=== PATIENT | male | born 1960 | race Caucasian/White ===

== ENCOUNTER 2016-10-02 19:53 | Inpatient (IN) ==
[2016-10-02] MEDS ORDERED: ASPIRIN 325 MG TABLET PO STA (20:37)
[2016-10-02] MEDS ORDERED: LORazepam 1 MG TABLET PO STA (20:37)
[2016-10-02] MEDS ORDERED: ALUM/MAG/SIMETH/LIDO VISC 1:1 30 ML BOTTLE PO STA (20:37)
[2016-10-02] MEDS ORDERED: PANTOPRAZOLE 40 MG VIAL IV STA (20:37)
[2016-10-02] MEDS ORDERED: ONDANSETRON 4 MG/2 ML VIAL IV STA (20:37)
[2016-10-02] MEDS ORDERED: METOCLOPRAMIDE 10 MG/2 ML VIAL IV STA (20:37)
--- NOTE | 2016-10-02 20:42 | Emergency Department Note ---
Arrival - Arrival Chief Complaint: Chest Pain Stated Complaint: CHEST PAIN, CHF PATIENT ED Nursing Triage Note: pt complains of squeezing type epigastric pain in center of chest, states he is having tingling in his left arm, pt denies n/v, pt says he is always sob. pt states he is diaphoretic. pt states he has had 2 etoh drinks. Mode of Arrival: Wheelchair Limitations: No Limitations Source: Patient Time Seen by Provider: 10/02/16 20:37 - History of Present Illness HPI Narrative: This 56-year-old white male with a history of congestive heart failure and coronary artery disease presents with 2 days of mid epigastric squeezing pain which is in the central chest. He states that he has considered this to be reflux as a possibility however this is how his cardiac related chest pains present and he does report tingling in the left arm with this. He does describe heartburn and water brash symptoms as well as diaphoresis; however, he does deny nausea and vomiting and has been drinking. He also states that he does have problems with panic anxiety situation and he does appear stressed at the moment. He also states that he is chronically short of breath due to congestive failure but his degree of dyspnea has not increased in association with these symptoms the last 2 days. Currently at rest in bed he appears anxious but in no acute medical distress. Onset (ago): day(s) (patient presents 3 days post-onset of symptoms) Consistency: constant Severity: moderate Severity scale (1-10): 5 Quality: burning Allergies/Adverse Reactions: Allergies Allergy/AdvReac Type Severity Reaction Status Date / Time No Known Allergies Allergy Verified 10/02/16 20:04 Review of System - Review of System 12 point system: reviewed and no additional remarkable complaints except as stated - Review of System Cardiovascular: Present: as per HPI Gastrointestinal: Present: as per HPI Medical,Surgical,& Family Hx - Medical History Cardio: History of: CHF, Cardiovascular Problems (50% occlusion) Endocrine: History of: Diabetes Mellitus (NIDDM) - Social History Smoking Status: Current every day smoker Frequency of Alcohol Use: Occasionally Type of Drug Use: Methamphetamine Exam Physical Examination: GENERAL: Obese white male diaphoretic with flushed face in no acute distress. HEENT: Normocephalic. No trauma. Moist mucous membranes. EOMI. PERRLA. ENT clear NECK: Supple. No adenopathy. No JVD CARDIAC: Regular. No murmurs. Heart rate 91 CHEST: Occasional expiratory rhonchi. No respiratory distress. O2 sat 95% ABDOMEN: Soft. Midepigastric tenderness. Active bowel sounds. EXTREMITIES: No trauma. Normal ROM. No pedal edema. SKIN: No rash. Red faced with diaphoresis. NEURO: Alert. Neuro intact No focal deficits. Vital Signs: Vital Signs Temperature 97.0 F L 10/02/16 19:58 Pulse Rate 91 H 10/02/16 19:58 Respiratory Rate 18 10/02/16 19:58 Blood Pressure 162/97 10/02/16 19:58 O2 Sat by Pulse Oximetry 95 10/02/16 19:58 Course - Reevaluation(s) Reevaluation #1: Discussed with patient the need for hospitalization for pancreatitis. - Consultations Consultation #1: Discussed with Dr. Guerra, hospitalist, who will admit for further evaluation and treatment. Results - Labs CBC & BMP: 10/02/16 21:12 10/02/16 21:12 Labs: I have reviewed the laboratory and noted the elevated lipase. Likewise noted the benzos, opiates, and pot in the urine as well as a low-level blood alcohol. - Impressions EKG sinus rhythm at 90 with normal ME interval and QRS duration. Evidence of old inferior AR. Left atrial enlargement. No acute injury pattern noted. - Diagnostic Findings Procedure: Chest x-ray: image reviewed by me, report reviewed by me (chronic basilar scarring otherwise unremarkable) Disposition Clinical Impression: pancreatitis, multiple substance use, cardiomyopathy, diabetes Case discussed with: patient Disposition: Still a Patient Condition: Guarded Time of Disposition: 23:25
[2016-10-02] MEDS ORDERED: PANTOPRAZOLE 40 MG VIAL IV ONE (20:48)
[2016-10-02] MEDS ORDERED: METOCLOPRAMIDE 10 MG/2 ML VIAL ONE (20:48)
[2016-10-02] MEDS ORDERED: LORazepam 1 MG TABLET ONE (20:48)
[2016-10-02] MEDS ORDERED: ASPIRIN 325 MG TABLET ONE (20:48)
[2016-10-02] MEDS ORDERED: ONDANSETRON 4 MG/2 ML VIAL ONE (20:48)
[2016-10-02] MEDS ORDERED: ALUM/MAG/SIMETH/LIDO VISC 1:1 30 ML BOTTLE PO ONE (20:49)
--- NOTE | 2016-10-02 21:04 | XRay Report ---
Portable chest Date:[10/02/2016] Clinical history: Chest pain Comparison: 06/19/2013 Technique: Portable AP sitting chest Findings: The heart appears slightly smaller in size. Chronic scarring in the lungs with stable mediastinum. No acute osseous findings. Impression: No acute cardiopulmonary pathology identified. PROCEDURE INTERPRETED AT [facility] DEPARTMENT OF RADIOLOGY Final Report Signed by: Dr. Corrie Antonio
[2016-10-02 21:15] LABS: Basophils # 0.1 10*3/uL (0.0-0.2); Basophils % 0.9 % (0.0-0.8); Eosinophils # 0.6 10*3/uL (0.0-0.87); Eosinophils % 5.2 % (0.00-10.9); Hematocrit 51.5 VOL% (42.0-52.0); Hemoglobin 17.1 GM/DL (14.0-18.0); Immature Granulocytes % 0.5 %; Immature Granulocytes Absolute 0.05 #; Lymphocytes # 2.6 10*3/uL (1.4-4.0); Lymphocytes % 23.2 % (21.2-54.2); Mean Corpuscular HGB Conc 33.2 GM/DL (32-36); Mean Corpuscular Hemoglobin 28 PG (27-34); Mean Corpuscular Volume 84.3 FL (87-102); Mean Platelet Volume 10.2 FL (9.6-12.0); Monocytes # 0.8 10*3/uL (0.11-0.8); Monocytes % 7.3 % (1.7-12.7); Neutrophils # 6.9 10*3/uL (1.4-7.4); Neutrophils % 62.9 % (38.7-73.9); Platelet Count 176 T/CUMM (130-400); Red Blood Count 6.11 MC/CUMM (3.8-5.5); Red Cell Distribution Width 14.4 % (9.3-17.3)
[2016-10-02 21:28] LABS: PT Patient Result 11.1 SECS; Partial Thromboplastin Time 26.8 SECS (0-40)
[2016-10-02 21:42] LABS: Alanine Aminotransferase 157 U/L (16-61); Albumin 3.6 G/DL (3.4-5.0); Alkaline Phosphatase 103 U/L (45-117); Aspartate Amino Transferase 78 U/L (0-37); Blood Urea Nitrogen 18 MG/DL (7-18); Calcium 9.3 MG/DL (8.5-10.1); Glucose 327 MG/DL (74-106); Osmolality,Calculated 287.8 MOS/KG (273-304); Sodium 137 MMOL/L (136-145); Total Protein 7.7 G/DL (6.4-8.3)
[2016-10-02 22:01] LABS: Apearance,Urine CLEAR (Clear); Bilirubin,Urine Negative (Negative); Blood, Urine Negative (Negative); Glucose,Urine (UA) >=500 mg/dL (Negative); Hyaline Casts,Urine 6 /LPF (0-3); Ketones,Urine Negative (Negative); Mucus,Urine Occasional /LPF (Occasional); Nitrite,Urine Negative (Negative); Protein,Urine 100 MG/DL; RBC,Urine <1 /HPF (0-4); Squamous Epithelial Cell,Urine Occasional /HPF (0-10); Urine Color Yellow (Yellow); Urine Specific Gravity 1.014 (1.001-1.035); Urine Urobilinogen < 2.0 EU/DL (0.2-1.0); WBC,Urine <1 /HPF (0-6)
[2016-10-02 22:04] LABS: Barbiturates Screen,Urine Negative (Negative); Benzodiazepines Screen,Urine Positive (Negative); Cannabinoid Screen,Urine Positive (Negative); Opiate Screen,Urine Positive (Negative); Phencyclidine Screen,Urine Negative (Negative)
[2016-10-03] MEDS ORDERED: MORPHINE 2 MG/1 ML SYRINGE IV PRN (00:26)
[2016-10-03] MEDS ORDERED: ONDANSETRON 4 MG/2 ML VIAL IV PRN (00:26)
[2016-10-03] MEDS ORDERED: traZODone 50 MG TABLET PO PRN (00:26)
[2016-10-03] MEDS ORDERED: BISACODYL 5 MG TABLET PO PRN (00:26)
[2016-10-03] MEDS ORDERED: ACETAMINOPHEN 325 MG TABLET PO PRN (00:26)
[2016-10-03] MEDS ORDERED: NICOTINE 21 MG/24 HR PATCH TRANSDERM PRN (00:26)
[2016-10-03] MEDS ORDERED: chlordiazePOXIDE 25 MG CAPSULE PO PRN (00:29)
[2016-10-03] MEDS ORDERED: SODIUM CHLORIDE 0.9% 1,000 ML IV SCH (00:30)
--- NOTE | 2016-10-03 00:34 | Hospitalist History & Physical ---
Assessment and Plan - Time spent with patient Time spent discussing smoking cessation with patient: 3 to 10 minutes (1) Acute pancreatitis Status: Acute Current Visit: Yes (2) Atypical chest pain Status: Acute Current Visit: Yes (3) Alcohol dependence Status: Acute Current Visit: Yes (4) Uncontrolled hypertension Status: Acute Current Visit: Yes (5) Type 2 diabetes mellitus Status: Acute Assessment and plan: Plan: 10/02: CT abdomen and pelvis pending. Continue IV fluids, pain control, supportive care. Clear liquid diet as tolerated. When necessary benzodiazepines for alcohol withdrawal. Recheck LFTs in the morning. We will also repeat cardiac enzymes given his history and abnormal (albeit minimally) troponin. Current Visit: Yes History of Present Illness Chief complaint: abdominal pain History of present illness: Mr. Bartlett is a 56 year old male with hypertension, type 2 diabetes, history of alcoholic cardiomyopathy, heavy drinking history several years ago, who is here with several hours of epigastric pain and a sensation of "squeezing in the chest." He was largely relieved by GI cocktail in the emergency room. Initially he rated the pain 7 out of 10 at worst. It radiated down to the mid abdomen. He denied nausea or vomiting, no diarrhea. He did have some diaphoresis, no shortness of breath. Lipase was found to be elevated as were LFTs. He does admit to drinking 2 large beers at least twice a week. I suspect he is minimizing his alcohol intake. CT scan is pending, however we are planning to admit him for treatment of acute pancreatitis. Allergies Allergy/AdvReac Type Severity Reaction Status Date / Time No Known Allergies Allergy Verified 10/02/16 20:04 Medical,Surgical,& Family Hx - Medical History Cardio: History of: CHF (chronic systolic CHF, dilated cardiomyopathy likely due to alcohol), Hypertension Psychological: History of: Depression Endocrine: History of: Diabetes Mellitus (NIDDM) - Surgical History Surgical History: noncontributory - Family History Family History: noncontributory - Social History Smoking Status: Current every day smoker Have you smoked in the last 12 months: Yes Time spent discussing smoking cessation with patient: 3 to 10 minutes Frequency of Alcohol Use: Frequently Type of Drug Use: Marijuana, Methamphetamine Marital Status: Unknown Functional capacity: independent ambulation Review of systems: A 12 point review of systems is negative except as specified in the HPI Exam - Constitutional Vitals: Period Temp Pulse Resp BP Sys/Felton Pulse Ox Last 24 Hr 97.0 F 91 18 162/97 95 Exam: EXAM: CONSTITUTIONAL: Disheveled, non toxic, NAD HEENT: NC, AT, OP benign, JEANNA, EOMI CV: RRR no m/g/r RESP: clear B/L, no w/r/r GI: abd soft, mild epigastric tenderness to palpation no rebound, ND, +bowel sounds, reducible umbilical hernia INTEGUMENTARY: no lesions or rash EXTREMITIES: no c/c/e NEURO: no focal deficits PSYCH: Awake and alert, hyperverbal Results - Labs CBC & BMP: 10/02/16 21:12 10/02/16 21:12 Lab Results: I have reviewed the past 24 hour labs - EKG EKG shows: sinus rhythm - Diagnostic Findings Procedure: Chest x-ray: image reviewed by me, report reviewed by me, CT Abdomen and Pelvis: pending Quality Measures - Stroke Onset of Symptoms Date: 09/29/16
[2016-10-03] MEDS ORDERED: GLUCAGON 1 MG VIAL IM PRN (01:42)
[2016-10-03] MEDS ORDERED: DEXTROSE 50% 25 GM/50 ML VIAL IV PRN (01:42)
[2016-10-03 03:54] LABS: Basophils # 0.1 10*3/uL (0.0-0.2); Basophils % 0.6 % (0.0-0.8); Eosinophils # 0.5 10*3/uL (0.0-0.87); Eosinophils % 6.4 % (0.00-10.9); Hematocrit 48.1 VOL% (42.0-52.0); Hemoglobin 16.3 GM/DL (14.0-18.0); Immature Granulocytes % 0.4 %; Immature Granulocytes Absolute 0.03 #; Lymphocytes # 2.4 10*3/uL (1.4-4.0); Lymphocytes % 29.3 % (21.2-54.2); Mean Corpuscular HGB Conc 33.9 GM/DL (32-36); Mean Corpuscular Hemoglobin 28 PG (27-34); Mean Corpuscular Volume 83.4 FL (87-102); Mean Platelet Volume 10.8 FL (9.6-12.0); Monocytes # 0.6 10*3/uL (0.11-0.8); Monocytes % 7.8 % (1.7-12.7); Neutrophils # 4.5 10*3/uL (1.4-7.4); Neutrophils % 55.5 % (38.7-73.9); Platelet Count 157 T/CUMM (130-400); Red Blood Count 5.77 MC/CUMM (3.8-5.5); Red Cell Distribution Width 14.5 % (9.3-17.3)
[2016-10-03 04:24] LABS: Albumin 3.5 G/DL (3.4-5.0); Bilirubin,Total 1.6 MG/DL (0.2-1.0); Calcium 8.5 MG/DL (8.5-10.1); Potassium 4.1 MMOL/L (3.5-5.1); Risk Ratio 5.33; Total Protein 6.6 G/DL (6.4-8.3); VLDL CHOLESTEROL 109.8 MG/DL
[2016-10-03 05:25] LABS: Troponin I Only 0.052 NG/ML (0.00-0.045)
--- NOTE | 2016-10-03 08:08 | CT Report ---
Exam: CT chest abdomen pelvis w con Date: 10/02/2016 11:21 PM Comparison: None Indication: Chest pain, generalized abdominal pain Technique:Sequential axial scans of the chest, abdomen, and pelvis were obtained following the injection of 100 cc Omnipaque 350 and the ingestion of oral contrast. Coronal and sagittal 2-D reconstructions were obtained. This exam was initially interpreted by [facility]. Total DLP: 2542.90 Findings: The heart is normal in size with cardiac fat pads and coronary artery calcifications. No evidence of aortic dissection, pulmonary emboli, or chest lymphadenopathy. Very minimal atelectasis/scarring. Fatty infiltration of the liver with elongation of the right lobe. No masses, dilated ducts, or calcified gallstones. The spleen is minimally enlarged. 35 x 30 x 38 mm cystic-appearing masslike finding in the tail of the pancreas. Minimal nodularity of the right adrenal gland with unremarkable left adrenal gland. Probable small very small renal cysts with no renal or ureteral calculi. Calcification in the wall of the nondilated abdominal aorta with no adjacent adenopathy. Small hiatal hernia with metallic densities in the stomach and nondilated small bowel. 65 mm fat-containing umbilical hernia. Minimal oral contrast reaches the cecum with metallic density in this location. No evidence of diverticulitis, appendicitis, free air, or free fluid. Increased fecal material in the colon with probable diverticulosis. The prostate measures 47 mm in diameter with unremarkable urinary bladder. Degenerative changes are noted with chronic defects in the pars interarticularis at L5 with no slippage. Impression: 35 x 30 x 38 mm cystic mass or pseudocyst in the pancreatic tail. Followup is recommended. Diffuse arterial calcifications including coronary artery calcifications with cardiac fat pads. Fatty infiltration of the liver with minimal splenomegaly. Probable small right adrenal adenoma. Small hiatal hernia with probable ingested shot. 65 mm fat-containing umbilical hernia, diverticulosis of the colon, and increased fecal material in the colon. Limited oral contrast in the colon. Chronic L5 pars defects with degenerative changes. PROCEDURE INTERPRETED AT [facility] DEPARTMENT OF RADIOLOGY Final Report Signed by: Dr. Corrie Antonio
[2016-10-03] MEDS: INSULIN REGULAR 100 UNIT/ML SUBCUT SCH ×4 (09:47→21:02)
[2016-10-03] MEDS: PANTOPRAZOLE 40 MG TABLET PO SCH (09:49)
[2016-10-03] MEDS: ENOXAPARIN 40 MG/0.4 ML SYRINGE SUBCUT SCH (09:49)
--- NOTE | 2016-10-03 10:57 | EKG Report ---
Stationary ECG Study [facility] ER Test Date: 10/02/2016 8:10:20 PM Pat Name: MYRA BEYER Department: Room: 224 Gender: M Firer [place]: : 1960 Requested by: Noam Bangura Order Number: [id number] Reading MD: VINCENT APODACA Intervals [place] Rate: 90 P: 79 CA: 202 QRS: -1 QRSD: 109 T: 94 QT: 383 QTc: 430 Interpretive Statements SINUS RHYTHM INFERIOR INFARCT, AGE UNDETERMINED Electronically Signed On 10-03-16 16:49:57 GRAZING AIDE by VINCENT APODACA [email or web address]
--- NOTE | 2016-10-03 15:28 | Event Note ---
Mr. Bartlett has far less abdominal pain today. He's been tolerating clear liquids. I discussed the findings of the CT with radiologist briefly. We'll have GI see the patient, check a CA 19-9. He denies significant weight loss, no history of pancreatic cancer in the family. He does have a very heavy drinking history a few years ago while he was taking care of his sick, elderly mother. My suspicion is that this is a pseudocyst. We'll advance him to full liquids and see how he does, advance diet from there.
--- NOTE | 2016-10-03 16:44 | Gastrointestinal Consult Note ---
Assessment and Plan - Time spent with patient Time spent with patient: Greater than 30 minutes (1) Acute pancreatitis Status: Acute Current Visit: Yes (2) Abnormal findings on diagnostic imaging of other abdominal regions, including retroperitoneum Status: Acute Current Visit: Yes (3) Other specified counseling Status: Acute Current Visit: Yes History of Present Illness History of present illness: Mr. Bartlett is a 56 year old male Allergies Allergy/AdvReac Type Severity Reaction Status Date / Time No Known Allergies Allergy Verified 10/02/16 20:04 Medical,Surgical,& Family Hx - Medical History Cardio: History of: CHF (chronic systolic CHF, dilated cardiomyopathy likely due to alcohol), Hypertension, Cardiovascular Problems (50% occlusion) Psychological: History of: Depression Endocrine: History of: Diabetes Mellitus (NIDDM) Respiratory: History of: Obstructive Sleep Apnea, Pneumonia Gastrointestinal: History of: Pancreatitis Other: History of: Eczema - Surgical History Cardiac Surgeries: Sugical HX of: Cardiac Catheterization Thoracic Surgeries: Patient denies;: Organ Transplant, Lobectomy HEENT Surgeries: Patient denies: Eye Surgery, Tonsilectomy & Adenoidectomy Abdominal Surgeries: Patient denies: Abdominal Surgery Reproductive Surgeries: Patient denies;: Genitourinary Surgery Orthopedic Surgeries: Surgical HX of;: Orthopedic Surgery (shoulder dislocation) - Social History Smoking Status: Current every day smoker Frequency of Alcohol Use: Frequently Type of Drug Use: Marijuana, Methamphetamine Exam - Constitutional Vitals: Period Temp Pulse Resp BP Sys/Felton Pulse Ox Last 24 Hr 97.7 F-98.2 F 76-89 18-20 130-173/80-124 93-98 Results - Labs CBC & BMP: 10/03/16 03:09 10/03/16 03:09 Quality Measures - Stroke Onset of Symptoms Date: 09/29/16 Note Addendum: PLEASE NOTE -- automatic citation of patient information is unavoidable in this electronic note. I have made a reasonable effort to review the information cited , but it is not a part of my evaluation, impression, or recommendation unless specifically discussed in the dictated text that follows.~ As well, voice recognition software was used in the creation of this clinical note. Reasonable effort was made to identify and correct gross errors. Despite proofreading, errors in principal accounts clerk may be present, including nonsense verbiage at times. If you encounter such an error, please contact me at for discussion and correction. -- Jose Chief complaint: acute pancreatitis History of present illness: this is a 56-year-old male, a new patient, seen by consultation for evaluation of acute pancreatitis with pancreatic cyst versus mass. The patient is admitted to the hospitalist service under the care of Dr. Guerra with primary diagnosis of same. He was admitted yesterday with primary complaint of epigastric pain and chest discomfort. His pain was in the epigastrium, radiating toward the abdomen, and was relieved by a G.I. cocktail in the emergency department. Evaluation revealed elevation in liver associated enzymes, pancreatic enzymes, and a cystic lesion associated with the tail of the pancreas. He was admitted and treated appropriately for the acute pancreatitis and has begun to feel better. Etiology of pancreatitis appears to be alcohol as the patient reports a past history of heavy alcohol use and also admits current alcohol use though minimizes current volume. Patient denies fever, chills, night sweats, rigors, headache, dizziness, neck pain, visual changes, redness of the eyes, dysphagia, odynophagia, difficulty chewing, shortness of breath, weight loss, regurgitation, hematemesis, hematochezia, melena, proctalgia, constipation, dysuria, skin changes, temperature regulation issues, flushing, easy bleeding/bruising, mental status change, numbness/weakness in the extremities, yellowing of the eyes/skin, cutaneous eruptions, family history of gastrointestinal cancer and colon polyps , and other complaints in general. Review of systems: 12 point review of systems was negative except as documented above. Outpatient medications: none reported Inpatient medications: Tylenol, Norvasc, Dulcolax, Coreg, Librium, Lovenox, hydralazine, [place], Humulin, Glucophage, morphine sulfate, Nicoderm, Zofran, Protonix, trazodone Past Medical History: congestive heart failure, dilated cardiomyopathy, hypertension, depression, diabetes Social history: positive tobacco. Positive alcohol. Positive marijuana and methamphetamine ~ Family history: no gastrointestinal cancers Physical examination:~ Vital Signs: Current vital signs reviewed and documented above.~ General Appearance: well-appearing. Not acutely ill. Head: Normocephalic.~ Neck: Palpation of the neck revealed no abnormalities.~ Eyes: No scleral icterus.~ No scleral injection.~ No conjunctival pallor.~ Oral Cavity: Odor of breath was normal. No drooling was observed. Lips showed no abnormalities. Floor of the mouth showed no abnormalities.~ Pharynx: Oropharynx was normal.~ Lungs: Respiration rhythm and depth was normal.~ Cardiovascular: Heart rate and rhythm were normal. No murmurs were appreciated.~ Abdomen: abdomen was not distended. Abdominal palpation revealed no tenderness and no hepatosplenomegaly. Ascites was not discovered. Abdominal auscultation revealed positive bowel sounds. Musculoskeletal System: Musculoskeletal system was grossly normal.~ Neurological: level of consciousness was normal. Speech was normal. Skin: General appearance was normal. Color and pigmentation were normal. No skin lesions. ~ Laboratory: white blood count 8.0, hemoglobin 16.3, hematocrit 40.1, platelets 157, INR 1.0, PT 11.1, sodium 136, potassium 4.1, BUN 21, creatinine 1.3, CO2 25 , chloride 98, ALT 146, AST 77, total bilirubin 1.6, triglyceride 549, lipase 401, CA 19-9 153 Radiology: CT of the abdomen and pelvis reveals a 3.5 x 4 cm cystic mass or suit assist involving the pancreatic tail, diffuse arterial calcifications, and other incidental findings Impressions:~ 1. Acute pancreatitis -- the patient is responding to volume resuscitation but this could be a little more aggressive, understanding the known history of congestive heart failure makes this difficult. Otherwise, continued supportive care is indicated. With elevated serum triglyceride, there is some possibility of triglyceride related~ pancreatitis but this level is probably not high enough and probably does not indicate a high risk for familial hypertriglyceridemia. More likely, this is alcohol related pancreatitis. I recommend continued counseling regarding alcohol abstinence, aggressive therapy against~ high triglycerides, and minimization of medications to the greatest extent possible. 2. Abnormal imaging of the pancreas, nonspecific -- this may be a pancreatic pseudo-cyst or a cystic neoplasm. With elevated CA 19-9, concern for malignancy is increased. I recommend pancreatic MRCP for better characterization of this lesion in the short-term. If confirmed, radiologic guided tissue sampling would be indicated and this could be achieved percutaneously or, by referral, via endoscopic ultrasound. Further recommendations will follow these diagnostics. 3. Other specified counseling:~ The patient was seen for greater than 30 minutes.~ The patient was counseled for greater than 50% of this time regarding differential diagnosis, likely diagnosis, diagnostic and therapeutic alternatives, risks/benefits/alternatives of medications and procedures, and plan of care generally.~ The patient expressed understanding and wishes to proceed. Recommendations: -- continue aggressive volume management -- advance diet as tolerated -- continued analgesic as needed -- aggressive anti-triglyceride therapy -- otherwise, minimize medication to the greatest extent possible -- continue reinforcing alcohol abstinence -- pancreatic MRCP for better characterization of cystic lesion -- consider radiologic guided tissue sampling -- thank you for this consultation. We will~ follow with you.
[2016-10-03] MEDS: metFORMIN 500 MG TABLET PO SCH (16:48)
[2016-10-03] MEDS: hydrALAZINE 10 MG TABLET PO SCH (21:02)
[2016-10-03] MEDS: CARVEDILOL 3.125 MG TABLET PO SCH (21:02)
[2016-10-04 04:02] LABS: Basophils % 0.6 % (0.0-0.8); Eosinophils # 0.3 10*3/uL (0.0-0.87); Eosinophils % 4.9 % (0.00-10.9); Hematocrit 50.2 VOL% (42.0-52.0); Hemoglobin 16.2 GM/DL (14.0-18.0); Immature Granulocytes % 0.3 %; Immature Granulocytes Absolute 0.02 #; Lymphocytes # 1.6 10*3/uL (1.4-4.0); Lymphocytes % 25.8 % (21.2-54.2); Mean Corpuscular HGB Conc 32.3 GM/DL (32-36); Mean Corpuscular Hemoglobin 28 PG (27-34); Mean Corpuscular Volume 85.7 FL (87-102); Mean Platelet Volume 10.7 FL (9.6-12.0); Monocytes # 0.4 10*3/uL (0.11-0.8); Monocytes % 6.8 % (1.7-12.7); Neutrophils # 3.9 10*3/uL (1.4-7.4); Neutrophils % 61.6 % (38.7-73.9); Platelet Count 136 T/CUMM (130-400); Red Blood Count 5.86 MC/CUMM (3.8-5.5); Red Cell Distribution Width 14.4 % (9.3-17.3); White Blood Count 6.3 T/CUMM (4-12)
[2016-10-04 04:29] LABS: Albumin 3.4 G/DL (3.4-5.0); Bilirubin,Total 1.1 MG/DL (0.2-1.0); Calcium 8.5 MG/DL (8.5-10.1); Osmolality,Calculated 289.1 MOS/KG (273-304); Total Protein 6.5 G/DL (6.4-8.3)
[2016-10-04] MEDS: INSULIN REGULAR 100 UNIT/ML SUBCUT SCH ×4 (08:36→20:27)
[2016-10-04] MEDS: hydrALAZINE 10 MG TABLET PO SCH ×2 (08:37→20:27)
[2016-10-04] MEDS: PANTOPRAZOLE 40 MG TABLET PO SCH (08:37)
[2016-10-04] MEDS: metFORMIN 500 MG TABLET PO SCH ×2 (08:37→16:46)
[2016-10-04] MEDS: amLODIPine 2.5 MG TABLET PO SCH (08:37)
[2016-10-04] MEDS: CARVEDILOL 3.125 MG TABLET PO SCH ×2 (08:37→20:27)
[2016-10-04] MEDS: ENOXAPARIN 40 MG/0.4 ML SYRINGE SUBCUT SCH (08:37)
--- NOTE | 2016-10-04 10:58 | Gastrointestinal Progress Note ---
Assessment and Plan (1) Acute pancreatitis Status: Acute Current Visit: Yes (2) Abnormal findings on diagnostic imaging of other abdominal regions, including retroperitoneum Status: Acute Current Visit: Yes (3) Other specified counseling Status: Acute Current Visit: Yes Exam (Progress Note) - Constitutional Vitals: Period Temp Pulse Resp BP Sys/Felton Pulse Ox Last 24 Hr 97.6 F-98.2 F 76-87 18-20 136-182/82-106 93-97 Results - Labs CBC & BMP: 10/04/16 03:30 10/04/16 03:30 Note Addendum: PLEASE NOTE -- automatic citation of patient information is unavoidable in this electronic note. I have made a reasonable effort to review the information cited , but it is not a part of my evaluation, impression, or recommendation unless specifically discussed in the dictated text that follows.~ As well, voice recognition software was used in the creation of this clinical note. Reasonable effort was made to identify and correct gross errors. Despite proofreading, errors in education program manager may be present, including nonsense verbiage at times. If you encounter such an error, please contact me at for discussion and correction. -- Jose Chief complaint: acute pancreatitis History of present illness: 56-year-old male seen for follow-up of acute pancreatitis as well as abnormal imaging involving the tale of the pancreas. The patient reports no change in his abdominal symptoms since yesterday. He has tolerated the diet without difficulty. He has not had a bowel movement reported. Review of systems: 12 point review of systems was negative except as documented above. Inpatient medications: Tylenol, Norvasc, Dulcolax, Coreg, Librium, Lovenox, hydralazine, [place], Humulin, Glucophage, morphine sulfate, Nicoderm, Zofran, Protonix, trazodone Physical examination:~ Vital Signs: Current vital signs reviewed and documented above.~ General Appearance: well-appearing. Not acutely ill. Head: Normocephalic.~ Neck: Palpation of the neck revealed no abnormalities.~ Eyes: No scleral icterus.~ No scleral injection.~ No conjunctival pallor.~ Oral Cavity: Odor of breath was normal. No drooling was observed. Lips showed no abnormalities. Floor of the mouth showed no abnormalities.~ Pharynx: Oropharynx was normal.~ Lungs: Respiration rhythm and depth was normal.~ Cardiovascular: Heart rate and rhythm were normal. No murmurs were appreciated.~ Abdomen: abdomen was not distended. Abdominal palpation revealed no tenderness and no hepatosplenomegaly. Ascites was not discovered. Abdominal auscultation revealed positive bowel sounds. Musculoskeletal System: Musculoskeletal system was grossly normal.~ Neurological: level of consciousness was normal. Speech was normal. Skin: General appearance was normal. Color and pigmentation were normal. No skin lesions. ~ Laboratory: white blood count 6.3, hemoglobin 16.2, hematocrit 50.2, platelets 136, ALT 250, AST 182, total bilirubin 1.1 Radiology: CT of the abdomen and pelvis reveals a 3.5 x 4 cm cystic mass or suit assist involving the pancreatic tail, diffuse arterial calcifications, and other incidental findings Impressions:~ 1. Acute pancreatitis -- continue aggressive volume management. Follow liver associated enzymes. MRCP as previously recommended. Radiologic assisted tissue sampling as previously recommended. 2. Abnormal imaging of the pancreas, nonspecific -- as discussed above 3. Other specified counseling:~ The patient was seen for less than 30 minutes.~ The patient was counseled for greater than 50% of this time regarding differential diagnosis, likely diagnosis, diagnostic and therapeutic alternatives, risks/benefits/alternatives of medications and procedures, and plan of care generally.~ The patient expressed understanding and wishes to proceed. Recommendations: -- continue aggressive volume management -- advance diet as tolerated -- continued analgesic as needed -- aggressive anti-triglyceride therapy -- otherwise, minimize medication to the greatest extent possible -- continue reinforcing alcohol abstinence -- pancreatic MRCP for better characterization of cystic lesion -- consider radiologic guided tissue sampling -- thank you for this consultation. Dr. Marino will assume G.I. care for this patient tomorrow.
--- NOTE | 2016-10-04 15:38 | Hospitalist Progress Note ---
Assessment and Plan (1) Acute pancreatitis Status: Acute Current Visit: Yes (2) Atypical chest pain Status: Acute Current Visit: Yes (3) Pancreatic mass Status: Acute Current Visit: Yes (4) Alcohol dependence Status: Acute Current Visit: Yes (5) Uncontrolled hypertension Status: Acute Current Visit: Yes (6) Type 2 diabetes mellitus Status: Acute Assessment and plan: Plan: 10/02: CT abdomen and pelvis pending. Continue IV fluids, pain control, supportive care. Clear liquid diet as tolerated. When necessary benzodiazepines for alcohol withdrawal. Recheck LFTs in the morning. We will also repeat cardiac enzymes given his history and abnormal (albeit minimally) troponin. 10/03: Mr. Bartlett has far less abdominal pain today. He's been tolerating clear liquids. I discussed the findings of the CT with radiologist briefly. We'll have GI see the patient, check a CA 19-9. He denies significant weight loss, no history of pancreatic cancer in the family. He does have a very heavy drinking history a few years ago while he was taking care of his sick, elderly mother. My suspicion is that this is a pseudocyst. We'll advance him to full liquids and see how he does, advance diet from there. 10/04: Patient is tolerating a diet, will decrease IV fluids. MRCP tomorrow, supportive care otherwise. Current Visit: Yes Hospitalist: Subjective Interval history: Mr. Bartlett is ambulating the hallway without difficulty. Minimal abdominal pain. No nausea or vomiting. Planning for MRCP tomorrow. Exam - Constitutional Vitals: Period Temp Pulse Resp BP Sys/Felton Pulse Ox Last 24 Hr 97.6 F-98.2 F 76-87 18-20 136-182/82-106 93-99 Exam: EXAM: CONSTITUTIONAL: Obese, non toxic, NAD HEENT: NC, AT, OP benign, JEANNA, EOMI CV: RRR no m/g/r RESP: clear B/L, no w/r/r GI: abd soft, nontender, ND, +bowel sounds, reducible umbilical hernia INTEGUMENTARY: no lesions or rash EXTREMITIES: no c/c/e NEURO: no focal deficits PSYCH: Awake and alert, hyperverbal Results - Labs CBC & BMP: 10/04/16 03:30 10/04/16 03:30 Lab Results: I have reviewed the past 24 hour labs Quality Measures - Stroke Onset of Symptoms Date: 09/29/16
[2016-10-05 06:55] LABS: Basophils # 0.1 10*3/uL (0.0-0.2); Basophils % 0.7 % (0.0-0.8); Eosinophils # 0.3 10*3/uL (0.0-0.87); Eosinophils % 3.9 % (0.00-10.9); Hematocrit 51.7 VOL% (42.0-52.0); Hemoglobin 17.3 GM/DL (14.0-18.0); Immature Granulocytes % 0.6 %; Immature Granulocytes Absolute 0.04 #; Lymphocytes # 1.9 10*3/uL (1.4-4.0); Lymphocytes % 26.7 % (21.2-54.2); Mean Corpuscular HGB Conc 33.5 GM/DL (32-36); Mean Corpuscular Hemoglobin 28 PG (27-34); Mean Corpuscular Volume 83.1 FL (87-102); Monocytes # 0.6 10*3/uL (0.11-0.8); Monocytes % 8.4 % (1.7-12.7); Neutrophils # 4.2 10*3/uL (1.4-7.4); Neutrophils % 59.7 % (38.7-73.9); Platelet Count 153 T/CUMM (130-400); Red Blood Count 6.22 MC/CUMM (3.8-5.5); Red Cell Distribution Width 14.8 % (9.3-17.3)
[2016-10-05 07:32] LABS: Albumin 3.6 G/DL (3.4-5.0); Osmolality,Calculated 287.3 MOS/KG (273-304); Potassium 4.1 MMOL/L (3.5-5.1); Total Protein 7.2 G/DL (6.4-8.3)
[2016-10-05] MEDS: INSULIN REGULAR 100 UNIT/ML SUBCUT SCH ×4 (09:38→22:31)
[2016-10-05] MEDS: ENOXAPARIN 40 MG/0.4 ML SYRINGE SUBCUT SCH (09:38)
[2016-10-05] MEDS: amLODIPine 2.5 MG TABLET PO SCH (09:39)
[2016-10-05] MEDS: metFORMIN 500 MG TABLET PO SCH ×2 (09:39→17:10)
[2016-10-05] MEDS: CARVEDILOL 3.125 MG TABLET PO SCH ×2 (09:39→22:30)
[2016-10-05] MEDS: PANTOPRAZOLE 40 MG TABLET PO SCH (09:39)
[2016-10-05] MEDS: hydrALAZINE 10 MG TABLET PO SCH ×2 (09:39→22:31)
--- NOTE | 2016-10-05 10:12 | Physician Query Form ---
CLICK EDIT DOCUMENT TO SELECT QUERY ANSWER --> OK --> SIGN Joanne Jaquez RN, CCDS Certified Clinical Coring Machine Operator W) [phone] (f) [phone] [email or web address] PROVIDERS: Make your selection(s) from the choices in EACH section by typing an "x" and enter comments in the comment section. Please use your independent medical judgment in providing your response. This request does not imply that any particular answer is desired or expected. CLINICAL INDICATORS: (Providers should not edit this section) The medical record indicates that the patient was admitted with pancreatitis, history of alcoholic cardiomyopathy, alcohol dependence and "He does have a very heavy drinking history a few years ago while he was taking care of his sick , elderly mother". Based on the above, could you clarify the appropriate diagnosis, if significant , that supports the above abnormalities and additional evaluation, monitoring, and/or treatment rendered: (x ) Pancreatitis is thought to be due to ___alcoholic pancreatitis ( ) Pancreatitis is thought to be due to alcoholism ( ) Other, please specify: ( ) Clinically unable to determine COMMENTS: Use of terms such as suspected, likely, or probable (associated with a specific diagnosis that is being evaluated, monitored, or treated as if it exists) are acceptable and can be restated in the discharge summary if not ruled out. MTDD
--- NOTE | 2016-10-05 11:14 | Gastrointestinal Progress Note ---
<Dulce Leavitt - Last Filed: 10/05/16 11:10> Assessment and Plan (1) Acute pancreatitis Status: Acute Assessment and plan: 10/05-MRCP pending today. No reports of abd pain, nausea or vomiting. Tolerating diet. Await MRCP results today. Plan and addendum to follow by DR Marino Current Visit: Yes Gastroenterology - PN: Subj Interval history: CC: Pancreatitis Pt is awake, sitting up in chair. States he is feeling better today. He denies any pain, nausea or vomiting at this time. He is for MRCP this morning pending venous access which was lost overnight. His lipase levels were trending down last check. Noted his CA 19-9 is elevated. He states his last drink was a week ago in which he had "a beer". He states he quit drinking daily four years ago after his mom however prior to this he drank for 5 years with a pint of liquor daily. He states he has never had a bout of pancreatitis in the past however over the last year or so he has had twinges of LUQ pain when he would eat heavy foods. Abdomen is soft, nontender. ROS: Denies SOB or chest pain Exam (Progress Note) - Constitutional Vitals: Period Temp Pulse Resp BP Sys/Felton Pulse Ox Last 24 Hr 97.9 F-98.8 F 82-95 18-18 143-208/91-141 96-99 General appearance: normal weight, no acute distress - Head Head exam: Present: normal inspection, normocephalic - Eye Eye exam: Present: other (lids and conjunctiva unremarkable). Absent: scleral icterus - ENT ENT exam: Present: normal exam, normal oropharynx - Neck Neck exam: Present: normal inspection - Respiratory Respiratory exam: Present: clear to auscultation bilaterally. Absent: rales, rhonchi, wheezes - Cardiovascular Cardiovascular exam: Present: regular rate and rhythm. Absent: diastolic murmur , JVD, systolic murmur - GI/Abdominal GI/Abdominal exam: Present: normal bowel sounds, soft. Absent: ascites, distended, mass, organomegaly, tenderness - Extremities Exam Extremities exam: Present: normal inspection, full ROM - Back Exam Back exam: Present: normal inspection - Neurological Exam Neurological exam: Present: alert, oriented X3 - Psychiatric Psychiatric exam: Present: normal affect, normal mood - Skin Skin exam: Present: normal color, warm, dry Results - Labs CBC & BMP: 10/05/16 06:46 10/05/16 06:46 Lab Results: I have reviewed the past 24 hour labs <Breezy Marino - Last Filed: 10/05/16 17:23> Exam (Progress Note) - Constitutional Vitals: Period Temp Pulse Resp BP Sys/Felton Pulse Ox Last 24 Hr 97.9 F-98.5 F 82-95 18-18 143-208/91-141 97-97 Results - Labs CBC & BMP: 10/05/16 06:46 10/05/16 06:46
--- NOTE | 2016-10-05 12:26 | Hospitalist Progress Note ---
Assessment and Plan (1) Acute pancreatitis Status: Acute Assessment and plan: continue current regimen correlate care with GI await MRCP results further plan and addendum to follow per Dr. Guerra Current Visit: Yes Hospitalist: Subjective Interval history: Mr. Bartlett is sitting up in the bedside chair. He states he has no abdominal pain , no nausea vomiting or diarrhea. He denies chest pain or shortness of breath. He states he is tolerating a regular diet well. His lipase is trending down today, however his CA-19-9 is greatly elevated. he will go for an MRCP today, those results will not be back till later. Pt is asking when he can be discharged, I discussed with him that it would probably be at least tomorrow. he seems agitated and ready for discharge. Exam - Constitutional Vitals: Period Temp Pulse Resp BP Sys/Felton Pulse Ox Last 24 Hr 97.9 F-98.8 F 82-95 18-18 143-208/91-141 96-97 General appearance: no acute distress - Head Head exam: Present: normal inspection, normocephalic - Eye Eye exam: Present: EOMI. Absent: scleral icterus Pupils: Present: JEANNA, normal accommodation - ENT ENT exam: Present: normal exam, normal oropharynx - Neck Neck exam: Present: normal inspection. Absent: lymphadenopathy - Respiratory Respiratory exam: Present: clear to auscultation bilaterally. Absent: wheezes - Cardiovascular Cardiovascular exam: Present: regular rate and rhythm. Absent: tachycardia - GI/Abdominal GI/Abdominal exam: Present: normal bowel sounds, soft. Absent: tenderness - Extremities Exam Extremities exam: Present: normal inspection, full ROM. Absent: edema - Back Exam Back exam: Present: normal inspection. Absent: muscle spasm - Neurological Exam Neurological exam: Present: alert, oriented X3 - Psychiatric Psychiatric exam: Present: normal affect, normal mood - Skin Skin exam: Present: normal color, warm, dry Results - Labs CBC & BMP: 10/05/16 06:46 10/05/16 06:46 Quality Measures - Stroke Onset of Symptoms Date: 09/29/16
--- NOTE | 2016-10-05 17:27 | Magnetic Resonance Report ---
History: Acute pancreatitis. Abnormal CT scan with cystic mass in tail of pancreas. History of elevated CA 19-9 Date: 10/05/2016 Study: MRI abdomen with and without IV contrast Comparison exam: CT abdomen October 03, 2016 The abdomen was imaged in multiple planes on the 1.2 Symone open magnet before and after the IV administration of 20 ml Dotarem contrast , to include T1 in and out of phase images, T2 and T2 fat-sat images, and pre-and post IV contrast T1-weighted images. 3-D MIP images were also generated, archived, and analyzed in the performance of MRCP. There is a 3.3 x 2.5 x 3.4 cm fluid signal intensity cyst in the tail of the pancreas with some partial thin internal septation. There is no internal enhancement to specifically suggest neoplasm. There is no focal signal abnormality of the pancreas otherwise. The liver, spleen, adrenal glands, and fluid-filled gallbladder are unremarkable. There are some tiny fluid signal intensity cortical cysts measuring less than 1 cm scattered in either kidney. There is no malignant appearing stricture of the pancreatic duct on MRCP. There is no abnormal biliary dilatation. Common bile duct measures 4.5 mm diameter. No obvious gallstones are identified within the gallbladder. There is no obvious lymphadenopathy by short axis diameter criteria. There is no aortic aneurysm. Impression: 3.4 cm cystic lesion in the tail of pancreas consistent with pseudocyst. Consider 4-6 month followup MRI pancreas to document stability given the history of elevated CA 19-9. Please see above discussion PROCEDURE INTERPRETED AT [facility] DEPARTMENT OF RADIOLOGY Final Report Signed by: Dr. Diann Chavira
[2016-10-06] MEDS: INSULIN REGULAR 100 UNIT/ML SUBCUT SCH ×2 (08:00→12:59)
[2016-10-06] MEDS: metFORMIN 500 MG TABLET PO SCH (08:40)
[2016-10-06] MEDS: hydrALAZINE 10 MG TABLET PO SCH (08:40)
[2016-10-06] MEDS: PANTOPRAZOLE 40 MG TABLET PO SCH (08:40)
[2016-10-06] MEDS: ENOXAPARIN 40 MG/0.4 ML SYRINGE SUBCUT SCH (08:41)
[2016-10-06] MEDS: CARVEDILOL 3.125 MG TABLET PO SCH (08:45)
[2016-10-06] MEDS: amLODIPine 2.5 MG TABLET PO SCH (08:45)
--- NOTE | 2016-10-06 09:12 | Gastrointestinal Progress Note ---
<Dulce Leavitt - Last Filed: 10/06/16 09:09> Assessment and Plan (1) Acute pancreatitis Status: Acute Assessment and plan: 10/06-MRCP findings noted of 3.4cm cyst in tail of pancreas, no findings suggestive of neoplasm. Tolerating diet. No pain, N.V. Plan and addendum to follow by DR Marino. 10/05-MRCP pending today. No reports of abd pain, nausea or vomiting. Tolerating diet. Await MRCP results today. Plan and addendum to follow by DR Marino Gastroenterology - PN: Subj Interval history: CC: Pancreatitis Pt is awake, alert lying in bed. States that he is feeling better today. He is eating a regular diet and is having no pain with this. Denies any nausea or vomiting. Afebrile. MRCP findings noted for 3.4cm cyst in tail of pancreas with no findings indicative of neoplasm at this time in light of the elevated CA 19- 9. Abdomen is soft, nontender. He states he is ready for discharge today. ROS: Denies SOB or chest pain Exam (Progress Note) - Constitutional Vitals: Period Temp Pulse Resp BP Sys/Felton Pulse Ox Last 24 Hr 97.4 F-98.4 F 80-88 18-20 152-186/96-125 95-98 General appearance: normal weight, no acute distress - Head Head exam: Present: normal inspection, normocephalic - Eye Eye exam: Present: other (lids and conjunctiva unremarakble). Absent: scleral icterus - ENT ENT exam: Present: normal exam, normal oropharynx - Neck Neck exam: Present: normal inspection - Respiratory Respiratory exam: Present: clear to auscultation bilaterally. Absent: rales, rhonchi, wheezes - Cardiovascular Cardiovascular exam: Present: regular rate and rhythm. Absent: diastolic murmur , JVD, systolic murmur - GI/Abdominal GI/Abdominal exam: Present: normal bowel sounds, soft. Absent: ascites, distended, mass, organomegaly, tenderness - Extremities Exam Extremities exam: Present: normal inspection, full ROM - Back Exam Back exam: Present: normal inspection - Neurological Exam Neurological exam: Present: alert, oriented X3 - Psychiatric Psychiatric exam: Present: normal affect, normal mood - Skin Skin exam: Present: normal color, warm, dry Results - Labs CBC & BMP: 10/05/16 06:46 10/05/16 06:46 Lab Results: I have reviewed the past 24 hour labs <Breezy Marino - Last Filed: 10/06/16 17:07> Exam (Progress Note) - Constitutional Vitals: Period Temp Pulse Resp BP Sys/Felton Pulse Ox Last 24 Hr 97.6 F-98.4 F 79-88 18-20 152-182/100-125 95-98 Results - Labs CBC & BMP: 10/05/16 06:46 10/05/16 06:46
--- NOTE | 2016-10-06 11:16 | Discharge Summary ---
Hospital Course - Hospital Course Hospital Course: Mr. Bartlett was admitted with acute pancreatitis. I suspect the etiology is alcohol related. He has a history of very heavy drinking a few years ago, as well as alcohol use more than usual the last few weeks. He is also being poorly compliant with his medications. CT abdomen and pelvis showed a cystic lesion in the tail of pancreas, MRCP confirm that this is a pseudocyst and radiology recommended follow-up imaging in 4-6 months. We will schedule this for him. His clinical course was otherwise uneventful and he is pain-free. He is encouraged to stop smoking, and adhere to his medical regimen. He was thankful for our care and will be discharged home today. He states he has all of his medicines does not require any prescriptions. - Time spent with patient Time with patient DS: Greater than 30 minutes Time spent discussing smoking cessation with patient: 3 to 10 minutes Diagnosis - Discharge Diagnosis (1) Acute pancreatitis Status: Resolved (2) Pancreatic pseudocyst Status: Acute (3) Atypical chest pain Status: Resolved (4) Alcohol dependence Status: Acute (5) Uncontrolled hypertension Status: Acute (6) Type 2 diabetes mellitus Status: Acute Specialty Discharge - Follow Up or Referrals - Speciality Discharge Instructions Hospitalist Instructions: Follow-up MRCP for months, please schedule for patient. Follow-up with her primary care provider as needed Discharge Plan - Discharge Data Disposition: Disch To Home/Self Care Condition at Discharge: Stable - Discharge Medications Continue Carvedilol [Coreg] 25 mg PO BID W/MEALS hydrALAZINE TAB [Apresoline Tab] 25 mg PO BID Furosemide Tab [Lasix Tab] 40 mg PO DAILY Metformin HCl [Metformin HCl ER] 1,000 mg PO PC SUPPER traZODone [Desyrel] 50 - 100 mg PO BEDTIME PRN PRN Reason: Insomnia Amlodipine Besylate/Benazepril [Amlodipine-Benazepril 10-40 mg] 10 - 40 mg PO DAILY - Follow Up or Referral - Forms/Instructions Exam - Constitutional Vitals: Period Temp Pulse Resp BP Sys/Felton Pulse Ox Last 24 Hr 97.4 F-98.4 F 80-88 18-20 152-186/96-125 95-98 Exam: EXAM: CONSTITUTIONAL: Obese, non toxic, NAD HEENT: NC, AT, OP benign, JEANNA, EOMI CV: RRR no m/g/r RESP: clear B/L, no w/r/r GI: abd soft, nontender, ND, +bowel sounds, reducible umbilical hernia INTEGUMENTARY: no lesions or rash EXTREMITIES: no c/c/e NEURO: no focal deficits PSYCH: Awake and alert Discharge Results Labs on day of discharge: Labs from last 24 hours 10/06/16 10/05/16 10/05/16 07:13 18:17 15:51 POC Glucose 204 H 211 H 221 H 10/05/16 11:20 POC Glucose 261 H DS: Provider Date of admission: 10/03/16 00:26 Primary care physician: . No PCP Attending physician on admission: Nemesio Guerra DO Consults: 10/03/16 02:10 Consult to [facility], Educator [CONS] Routine Reason for Study Lead: Diabetes Education 10/03/16 14:52 Consult to Physician [CONS] Routine Comment: pancreatic cystic mass v pseudocyst,has acute panc Consulting Provider: Breezy Marino When should Consulting Provider be notified: Now Person Notified: BRANDON Date Notified: 10/05/16 Time Notified: 07:30 Discharging clinician: Nemesio Guerra DO Expected date of discharge: 10/06/16
[2016-10-06 13:44] VITALS: BP 173/115
== END 2016-10-06 12:10 | disposition home or self-care (01) | DRG 439 ==
LOC: N.ED 19:53 → N.EDINP 10-03 00:26 → N.2E 10-03 01:36
PROVIDERS: ADMIT Internal Medicine; ATTEND Internal Medicine

== ENCOUNTER 2018-08-27 06:45 | Inpatient (IN) ==
[2018-08-27] MEDS ORDERED: FUROSEMIDE 100 MG/10 ML VIAL IV STA (07:06)
[2018-08-27] MEDS ORDERED: hydrALAZINE 20 MG/1 ML VIAL IV STA ×2 (07:08→15:23)
[2018-08-27] MEDS ORDERED: NITROGLYCERIN SL 0.4 MG TABLET SL PRN (07:08)
[2018-08-27] MEDS ORDERED: MORPHINE 10 MG/1 ML VIAL IV STA (07:08)
[2018-08-27] MEDS ORDERED: LORazepam 2 MG/1 ML VIAL IV STA ×2 (07:10→15:51)
[2018-08-27] MEDS ORDERED: NITROGLYCERIN SL 0.4 MG TABLET SL ONE (07:13)
[2018-08-27] MEDS ORDERED: ASPIRIN CHEW 81 MG TABLET PO STA (07:32)
[2018-08-27 07:37] LABS: Basophils # 0.1 10*3/uL (0.0-0.2); Eosinophils # 0.2 10*3/uL (0.0-0.87); Eosinophils % 1.2 % (0.00-10.9); Hematocrit 52.9 VOL% (42.0-52.0); Hemoglobin 16.8 GM/DL (14.0-18.0); Immature Granulocytes % 0.5 %; Immature Granulocytes Absolute 0.07 #; Lymphocytes # 1.5 10*3/uL (1.4-4.0); Lymphocytes % 11.9 % (21.2-54.2); Mean Corpuscular HGB Conc 31.8 GM/DL (32-36); Mean Corpuscular Hemoglobin 28 PG (27-34); Mean Corpuscular Volume 88.2 FL (87-102); Mean Platelet Volume 13.4 FL (9.6-12.0); Monocytes # 0.8 10*3/uL (0.11-0.8); Monocytes % 6.3 % (1.7-12.7); Neutrophils # 10.2 10*3/uL (1.4-7.4); Neutrophils % 79.1 % (38.7-73.9); Platelet Count 235 T/CUMM (130-400); Red Cell Distribution Width 15.9 % (9.3-17.3); White Blood Count 12.9 T/CUMM (4-12)
[2018-08-27] MEDS: ALBUTEROL 2.5 MG/3 ML NEB RESP TX SCH ×2 (07:47→09:01)
[2018-08-27 07:51] LABS: ABG Base Excess -4.8 MMOL/L (-2.5-2.5); ABG HCO3 20.5 MMOL/L (20-26); ABG PH 7.369 (7.35-7.45); ABG PO2 95.6 MM HG (80-95); ABG TCO2 16.4 MMOL/L (23-27)
[2018-08-27] MEDS ORDERED: ONDANSETRON 4 MG/2 ML VIAL IV PRN (08:59)
[2018-08-27] MEDS ORDERED: DEXTROSE 50% 25 GM/50 ML VIAL IV PRN (08:59)
[2018-08-27] MEDS ORDERED: NICOTINE 21 MG/24 HR PATCH TRANSDERM PRN (08:59)
[2018-08-27] MEDS ORDERED: GLUCAGON 1 MG VIAL IM PRN (08:59)
[2018-08-27] MEDS ORDERED: traZODone 50 MG TABLET PO PRN (08:59)
[2018-08-27] MEDS ORDERED: BISACODYL 5 MG TABLET PO PRN (08:59)
[2018-08-27 09:16] LABS: Alanine Aminotransferase 71 U/L (16-61); Albumin 2.9 G/DL (3.4-5.0); Alkaline Phosphatase 162 U/L (45-117); Aspartate Amino Transferase 71 U/L (0-37); Blood Urea Nitrogen 14 MG/DL (7-18); Calcium 8.3 MG/DL (8.5-10.1); Glucose 382 MG/DL (74-106); Osmolality,Calculated 280.5 MOS/KG (273-304); Potassium 4.8 MMOL/L (3.5-5.1); Sodium 132 MMOL/L (136-145); Total Protein 6.7 G/DL (6.4-8.3)
[2018-08-27 09:17] LABS: Lactic Acid 2.2 MMOL/L (0.4-2.0)
[2018-08-27] MEDS ORDERED: SODIUM CHLORIDE 0.9% 100 ML IV ONE (10:25)
[2018-08-27] MEDS: ENOXAPARIN 40 MG/0.4 ML SYRINGE SUBCUT SCH (10:39)
[2018-08-27] MEDS: cefTRIAXone 1,000 MG in SYRINGE 1 EACH IV SCH (10:40)
[2018-08-27] MEDS: ALBUTEROL/IPRATROPIUM 3 ML NEB RESP TX SCH ×4 (11:22→23:50)
[2018-08-27] MEDS: LEVOFLOXACIN INJ 750 MG in PREMIX 1 EACH IV SCH (11:30)
[2018-08-27] MEDS: ACETYLCYSTEINE 20% 800 MG/4 ML VIAL RESP TX SCH ×2 (14:50→23:50)
[2018-08-27] MEDS ORDERED: hydrALAZINE 20 MG/1 ML VIAL ONE (15:23)
[2018-08-27] MEDS ORDERED: hydrALAZINE 20 MG/1 ML VIAL IV ONE (15:27)
[2018-08-27] MEDS: hydrALAZINE 25 MG TABLET PO SCH ×2 (15:32→20:52)
[2018-08-27] MEDS ORDERED: LORazepam 2 MG/1 ML VIAL ONE (15:44)
[2018-08-27 15:59] LABS: Lactic Acid 2.1 MMOL/L (0.4-2.0)
[2018-08-27] MEDS: INSULIN REGULAR 100 UNIT/ML SUBCUT SCH ×3 (16:01→21:38)
[2018-08-27] MEDS: CARVEDILOL 25 MG TABLET PO SCH (17:56)
[2018-08-27] MEDS: traZODone 50 MG TABLET PO PRN (20:52)
[2018-08-28] MEDS: ALBUTEROL/IPRATROPIUM 3 ML NEB RESP TX SCH ×6 (03:53→23:18)
[2018-08-28 07:17] LABS: Basophils # 0.1 10*3/uL (0.0-0.2); Eosinophils # 0.1 10*3/uL (0.0-0.87); Eosinophils % 1.6 % (0.00-10.9); Hematocrit 45.4 VOL% (42.0-52.0); Immature Granulocytes % 0.5 %; Immature Granulocytes Absolute 0.04 #; Lymphocytes # 1.4 10*3/uL (1.4-4.0); Lymphocytes % 17.3 % (21.2-54.2); Mean Corpuscular HGB Conc 32.2 GM/DL (32-36); Mean Corpuscular Hemoglobin 28 PG (27-34); Mean Corpuscular Volume 87.3 FL (87-102); Mean Platelet Volume 10.5 FL (9.6-12.0); Monocytes # 0.6 10*3/uL (0.11-0.8); Monocytes % 7.9 % (1.7-12.7); Neutrophils # 5.8 10*3/uL (1.4-7.4); Neutrophils % 71.7 % (38.7-73.9); Red Cell Distribution Width 15.7 % (9.3-17.3)
[2018-08-28 07:23] LABS: White Blood Count 8.1 T/CUMM (4-12)
[2018-08-28 07:24] LABS: Hemoglobin 14.6 GM/DL (14.0-18.0); Platelet Count 147 T/CUMM (130-400)
[2018-08-28 07:34] LABS: Calcium 8.3 MG/DL (8.5-10.1); Osmolality,Calculated 278.2 MOS/KG (273-304); Potassium 3.5 MMOL/L (3.5-5.1)
[2018-08-28] MEDS: ACETYLCYSTEINE 20% 800 MG/4 ML VIAL RESP TX SCH ×3 (09:04→23:19)
[2018-08-28] MEDS: cefTRIAXone 1,000 MG in SYRINGE 1 EACH IV SCH (10:13)
[2018-08-28] MEDS: INSULIN REGULAR 100 UNIT/ML SUBCUT SCH ×4 (10:14→21:19)
[2018-08-28] MEDS: LEVOFLOXACIN INJ 750 MG in PREMIX 1 EACH IV SCH (10:15)
[2018-08-28] MEDS: ENOXAPARIN 40 MG/0.4 ML SYRINGE SUBCUT SCH (10:16)
[2018-08-28] MEDS: CAPTOPRIL 12.5 MG TABLET PO SCH ×2 (10:16→16:44)
[2018-08-28] MEDS: CARVEDILOL 25 MG TABLET PO SCH ×2 (10:17→16:44)
[2018-08-28] MEDS: hydrALAZINE 25 MG TABLET PO SCH (10:17)
[2018-08-28] MEDS: PIPERACILLIN/TAZOBACTAM 3,375 MG in SODIUM CHLORIDE 0.9% 100 ML IV SCH ×2 (12:36→21:19)
[2018-08-28] MEDS: ALPRAZolam 0.5 MG TABLET PO SCH ×2 (16:44→21:18)
[2018-08-28] MEDS: ZALEPLON 5 MG CAPSULE PO PRN (21:18)
[2018-08-28] MEDS: traZODone 50 MG TABLET PO PRN (21:19)
[2018-08-29] MEDS: ALBUTEROL/IPRATROPIUM 3 ML NEB RESP TX SCH ×5 (02:40→19:16)
[2018-08-29 04:14] LABS: Basophils # 0.1 10*3/uL (0.0-0.2); Eosinophils # 0.2 10*3/uL (0.0-0.87); Eosinophils % 2.5 % (0.00-10.9); Hematocrit 44.4 VOL% (42.0-52.0); Hemoglobin 13.6 GM/DL (14.0-18.0); Immature Granulocytes % 0.3 %; Immature Granulocytes Absolute 0.02 #; Lymphocytes # 1.5 10*3/uL (1.4-4.0); Lymphocytes % 21.6 % (21.2-54.2); Mean Corpuscular HGB Conc 30.6 GM/DL (32-36); Mean Corpuscular Hemoglobin 27 PG (27-34); Mean Corpuscular Volume 88.8 FL (87-102); Mean Platelet Volume 10.6 FL (9.6-12.0); Monocytes # 0.5 10*3/uL (0.11-0.8); Monocytes % 7.9 % (1.7-12.7); Neutrophils # 4.5 10*3/uL (1.4-7.4); Neutrophils % 66.7 % (38.7-73.9); Platelet Count 129 T/CUMM (130-400); Red Cell Distribution Width 15.8 % (9.3-17.3); White Blood Count 6.8 T/CUMM (4-12)
[2018-08-29 04:38] LABS: Calcium 8.7 MG/DL (8.5-10.1); Osmolality,Calculated 278.8 MOS/KG (273-304); Potassium 3.2 MMOL/L (3.5-5.1)
[2018-08-29] MEDS ORDERED: POTASSIUM CHLORIDE RIDER 10 MEQ in PREMIX 1 EACH IV PRN (04:47)
[2018-08-29] MEDS: PIPERACILLIN/TAZOBACTAM 3,375 MG in SODIUM CHLORIDE 0.9% 100 ML IV SCH ×4 (05:13→23:11)
[2018-08-29] MEDS: POTASSIUM CHLORIDE 20 MEQ TABLET PO PRN ×2 (05:16→09:40)
[2018-08-29] MEDS: ACETYLCYSTEINE 20% 800 MG/4 ML VIAL RESP TX SCH ×2 (08:23→15:53)
[2018-08-29] MEDS ORDERED: MAGNESIUM SULF RIDER 2 GM in PREMIX 1 EACH IV ONE (08:33)
[2018-08-29] MEDS ORDERED: MAGNESIUM SULF RIDER 50 ML IV ONE (08:51)
[2018-08-29] MEDS: ALPRAZolam 0.5 MG TABLET PO SCH ×3 (09:39→21:27)
[2018-08-29] MEDS: FOLIC ACID 1 MG TABLET PO SCH (09:39)
[2018-08-29] MEDS: ENOXAPARIN 40 MG/0.4 ML SYRINGE SUBCUT SCH (09:40)
[2018-08-29] MEDS: CARVEDILOL 25 MG TABLET PO SCH ×2 (09:40→17:28)
[2018-08-29] MEDS: THIAMINE 100 MG TABLET PO SCH (09:40)
[2018-08-29] MEDS: LISINOPRIL 20 MG TABLET PO SCH (09:40)
[2018-08-29] MEDS: MULTIVITAMIN (CENTRUM) TABLET PO SCH (09:40)
[2018-08-29] MEDS: INSULIN REGULAR 100 UNIT/ML SUBCUT SCH ×4 (09:41→22:18)
[2018-08-29] MEDS: LEVOFLOXACIN INJ 750 MG in PREMIX 1 EACH IV SCH (09:57)
[2018-08-29] MEDS ORDERED: MAGNESIUM SULF RIDER 4 GM in PREMIX 1 EACH IV PRN (12:42)
[2018-08-29] MEDS ORDERED: MAGNESIUM SULF RIDER 2 GM in PREMIX 1 EACH IV PRN (12:42)
[2018-08-29] MEDS: ASPIRIN EC 81 MG TABLET PO SCH (15:19)
[2018-08-29] MEDS: traZODone 50 MG TABLET PO PRN (21:35)
[2018-08-29] MEDS: ZALEPLON 5 MG CAPSULE PO PRN (21:35)
[2018-08-30] MEDS: ACETYLCYSTEINE 20% 800 MG/4 ML VIAL RESP TX SCH ×3 (00:35→14:30)
[2018-08-30] MEDS: ALBUTEROL/IPRATROPIUM 3 ML NEB RESP TX SCH ×5 (00:35→14:30)
[2018-08-30] MEDS: PIPERACILLIN/TAZOBACTAM 3,375 MG in SODIUM CHLORIDE 0.9% 100 ML IV SCH (04:20)
[2018-08-30 05:07] LABS: Basophils # 0.1 10*3/uL (0.0-0.2); Basophils % 0.8 % (0.0-0.8); Eosinophils # 0.3 10*3/uL (0.0-0.87); Eosinophils % 4.2 % (0.00-10.9); Hematocrit 43.2 VOL% (42.0-52.0); Hemoglobin 13.4 GM/DL (14.0-18.0); Immature Granulocytes % 0.5 %; Immature Granulocytes Absolute 0.03 #; Lymphocytes # 1.5 10*3/uL (1.4-4.0); Mean Corpuscular Hemoglobin 28 PG (27-34); Mean Corpuscular Volume 89.6 FL (87-102); Mean Platelet Volume 10.8 FL (9.6-12.0); Monocytes # 0.5 10*3/uL (0.11-0.8); Monocytes % 8.4 % (1.7-12.7); Neutrophils # 3.7 10*3/uL (1.4-7.4); Neutrophils % 61.1 % (38.7-73.9); Platelet Count 133 T/CUMM (130-400); Red Blood Count 4.82 MC/CUMM (3.8-5.5); Red Cell Distribution Width 15.8 % (9.3-17.3)
[2018-08-30 05:24] LABS: Calcium 8.4 MG/DL (8.5-10.1); Potassium 3.3 MMOL/L (3.5-5.1)
[2018-08-30 05:28] LABS: Risk Ratio 6.32; VLDL CHOLESTEROL 33.8 MG/DL
[2018-08-30] MEDS: POTASSIUM CHLORIDE 20 MEQ TABLET PO PRN ×2 (06:19→09:01)
[2018-08-30] MEDS: ENOXAPARIN 40 MG/0.4 ML SYRINGE SUBCUT SCH (08:36)
[2018-08-30] MEDS: INSULIN REGULAR 100 UNIT/ML SUBCUT SCH ×2 (08:36→13:11)
[2018-08-30] MEDS: FOLIC ACID 1 MG TABLET PO SCH (08:37)
[2018-08-30] MEDS: ALPRAZolam 0.5 MG TABLET PO SCH (08:37)
[2018-08-30] MEDS: ASPIRIN EC 81 MG TABLET PO SCH (08:37)
[2018-08-30] MEDS: LISINOPRIL 20 MG TABLET PO SCH (08:37)
[2018-08-30] MEDS: MULTIVITAMIN (CENTRUM) TABLET PO SCH (08:37)
[2018-08-30] MEDS: THIAMINE 100 MG TABLET PO SCH (08:37)
[2018-08-30] MEDS: CARVEDILOL 25 MG TABLET PO SCH (08:37)
[2018-08-30] MEDS: LEVOFLOXACIN INJ 750 MG in PREMIX 1 EACH IV SCH (08:54)
[2018-08-30 13:04] VITALS: BP 154/98
[2018-08-30] MEDS ORDERED: AMOXICILLIN/CLAV 500 MG TABLET PO SCH (15:00)
== END 2018-08-30 16:21 | disposition home or self-care (01) | DRG 193 ==
LOC: EDUNIT# → EDBD → N.ED 06:45 → N.EDINP 08:59 → SUATTDRO 08:59 → N.TELEN 13:49
PROVIDERS: ADMIT Internal Medicine Cardiovascular Disease; ATTEND Internal Medicine